=== PATIENT | female | born 1995 ===

== ENCOUNTER 2018-01-17 14:15 | Emergency (ER) | payer SELFPAY ==
[2018-01-17 14:23] VITALS: BMI 31.8
[2018-01-17 14:26] VITALS: O2SAT 100
--- NOTE | 2018-01-17 14:59 | C.PDOC ---
History Of Present Illness 22 year old female presents to the ED complaining of prolonged and abnormally heavy menstrual bleeding. States she has had her period for 14 days. Associated symptoms include suprapubic pain and lightheadedness. Notes her period is u sually irregular. Reports she fainted this morning when she got up from bed which prompted the ED visit. Denies any injuries/trauma. Notes she has a similar presentation over a year ago and was hospitalized and given blood transfusions. Time Seen by Provider: 01/17/18 14:37 Chief Complaint (Nursing): Female Genitourinary History Per: Patient History/Exam Limitations: no limitations Onset/Duration Of Symptoms: Days Current Symptoms Are (Timing): Still Present Abnormal Vaginal Bleeding: Yes Past Medical History Reviewed: Historical Data, Nursing Documentation, Vital Signs Vital Signs: Last Vital Signs Temp 99.1 F 01/17/18 14:23 Pulse 108 H 01/17/18 14:23 Resp 16 01/17/18 14:23 BP 118/80 01/17/18 14:23 Pulse Ox 100 01/17/18 14:23 - Medical History PMH: Anemia Surgical History: No Surg Hx Family History: States: No Known Family Hx - Social History Hx Alcohol Use: Yes Hx Substance Use: Yes - Immunization History Hx Tetanus Toxoid Vaccination: No Hx Influenza Vaccination: No Hx Pneumococcal Vaccination: No Review Of Systems Except As Marked, All Systems Reviewed And Found Negative. Constitutional: Negative for: Fever, Chills Cardiovascular: Positive for: Light Headedness Gastrointestinal: Positive for: Abdominal Pain (suprapubic tenderness). N egative for: Nausea, Vomiting Genitourinary: Positive for: Vaginal Bleeding. Negative for: Dysuria, Hematuria Physical Exam - Physical Exam Appears: Non-toxic, No Acute Distress Skin: Warm, Dry Head: Normacephalic Eye(s): bilateral: Other (mild pallor ) Nose: Normal Oral Mucosa: Moist Neck: Supple Chest: Symmetrical Cardiovascular: Rhythm Regular Respiratory: No Rales, No Rhonchi, No Wheezing, Other (NARD) Gastrointestinal/Abdominal: Soft, Tenderness (suprapubic tendernesss), No Guarding, No Rebound Extremity: Bilateral: Atraumatic, Normal Color And Temperature, Normal ROM Neurological/Psych: Oriented x3, Normal Speech Gait: Steady ED Course And Treatment - Laboratory Results Result Diagrams: 01/17/18 15:29 01/17/18 15:29 O2 Sat by Pulse Oximetry: 100 (RA) Pulse Ox Interpretation: Normal - Physician Consult Information Time Consulting Physician Contacted: 16:02 Physician Contacted: Caitlyn Flower Outcome Of Conversation: OB F[employer]ER [employer] MAN, ADVISES PROVERA 10 MG X 10 DAY, FU OBGYN Medical Decision Making Medical Decision Making: Plan - POC - Bloodwork Disposition Counseled Patient/Family Regarding: Studies Performed, Diagnosis, Need For Followup, Rx Given - Disposition Referrals: [facility] [Outside] [facility] [Outside] [facility] [Outside] Disposition: HOME/ ROUTINE Disposition Time: 16:03 Condition: IMPROVED Prescriptions: Iron 18 mg PO DAILY #30 tablet MedroxyPROGESTERone [Provera] 1 tab PO DAILY #9 tab Instructions: Heavy Periods (DC) Forms: [facility] ([employer]) - Clinical Impression Clinical Impression: DUB (dysfunctional uterine bleeding) - Scribe Statement The provider has reviewed the documentation as recorded by the Scribe Wen Hartley All medical record entries made by the Scribe were at my direction and personally dictated by me. I have reviewed the chart and agree that the record accurately reflects my personal performance of the history, physical exam, medical decision making, and the department course for this patient. I have also personally directed, reviewed, and agree with the discharge instructions and disposition.
[2018-01-17 15:06] LABS: SQUAMOUS EPITHIAL 4 /hpf (0-5); URINE BILIRUBIN NEGATIVE (NEGATIVE); URINE BLOOD 3+ (NEGATIVE); URINE CLARITY Hazy (Clear); URINE COLOR Red (YELLOW); URINE GLUCOSE (UA) NORMAL (Normal); URINE LEUKOCYTE ESTERASE NEG Leu/uL (Negative); URINE PROTEIN 2+ mg/dL (NEGATIVE); URINE UROBILINOGEN NORMAL mg/dL (0.2-1.0)
[2018-01-17 15:35] LABS: BASO # 0.1 K/uL (0.0-0.2); EOS # 0.1 K/uL (0.0-0.7); EOS % 0.8 % (0.0-4.0); HEMOGLOBIN 8.9 g/dL (11.0-16.0); LYMPH # 1.8 K/uL (1.0-4.3); LYMPH % 24.9 % (20.0-40.0); MEAN CELL VOLUME 82.6 fL (81.0-99.0); MEAN CORPUSCULAR HEMOGLOBIN 27.3 pg (27.0-31.0); MEAN PLATELET VOLUME 9.5 fL (7.2-11.7); MONO # 0.4 K/uL (0.0-0.8); MONO % 5.2 % (0.0-10.0); NEUT # 4.8 K/uL (1.8-7.0); NEUT % 68.1 % (50.0-75.0); NRBC % 0.1 % (0.0-2.0); RBC 3.26 Mil/uL (3.80-5.20); WHITE BLOOD COUNT 7.1 K/uL (4.8-10.8)
[2018-01-17 16:02] LABS: BLOOD UREA NITROGEN 11 mg/dL (7-17); CALCIUM 8.6 mg/dl (8.6-10.4); GFR NON-AFRICAN AMERICAN > 60
[2018-01-17 16:36] VITALS: BP 115/73; PULSE 92; RESP 18; TEMP 98.6
== END 2018-01-17 16:36 | disposition home or self-care (01) ==
LOC: C.ER 14:15
DX: N93.8 Other specified abnormal uterine and vaginal bleeding (principal)